=== PATIENT | male | born 1950 | race African-American/Black ===

== ENCOUNTER → 2017-09-01 | Outpatient (CLI) | payer OTHER ==
[~2017-09-01] MED LIST: ACETAMINOPHEN325 M1 PO; AMBIEN CR 6.26.25 MG PO; AMBIENCR PO; ASPIRIN EC81 M1 PO; ATIVAN1 MG PO; B-121000 MC2 PO; BACTRIM DS TAB1 EACH PO; BACTROBAN22 GM TP; CELEXA 20 MG TA20 M1 PO; CELEXA 20 MG TA20 MG PO; CENTRUM SILVER1 EAC1; CENTRUM SILVER1 EAC4 PO; CIPROFLOXACIN500 M1 PO; CLONIDINE HCL0.2 M2 PO; COLACE 100 MG100 MG PO; DILTIAZEM 24HR240 M1 PO; DILTIAZEM 24HR240 MG PO; DIOVAN HCT 1601 EACH PO; DIOVAN HCT 3201 EAC1 PO; FLECAINIDE ACE100 MG PO; GLUCOTROL5 MG PO; HIBICLENS120 ML TP; JENTADUETO 2.51 EACH PO; K-DUR 20 MEQ T20 MEQ PO; LORAZEPAM 1 MG T1 M1 PO; MEDROL DOSPAK21 TAB PO; MINIPRIN81 MG PO; MOBIC15 MG PO; MOM PO; NEURONTIN 300300 M1 PO; NEURONTIN 300M300 M2 PO; NEXIUM 40 MG CA40 M1 PO; NORCO 5-325 TA1 EACH PO; PERCOCET 5-3251 EACH PO; PERCOCET PO; PROAIR HFA8.5 GM INH; SIMVASTATIN40 MG PO; SKELAXIN 800 M800 M1 PO; SONATA10 MG PO; SUPHEDRIN30 MG PO; TYLENOL325 MG PO; VALSARTAN-HCTZ1 EAC3 PO; VITAMIN B-1100 M1 PO; XANAX 0.5 MG0.5 MG PO; ZANTAC 150MG T150 M1 PO; ZOCOR40 MG PO
--- NOTE | ~2017-09-01 | 2DMMODE ---
[facility] [address] [place] [address] 2 D/M-MODE ECHOCARDIOGRAM Name: ALBINO MOSLEY SIERRA Room #: REG [facility]#: [id number] Admission: 09/01/17 Attend Phys: Marcus Orantes MD Discharge: Date of : 52 Date of Service: 09/01/17 1507 Report #: [id number] THIS REPORT FOR: //name// APPROVED REPORT Study performed: 09/01/2017 13:55:29 EXAM: Comprehensive 2D, Doppler, and color-flow Echocardiogram Patient Location: Out-Patient Room #: Echo lab Status: routine BSA: 2.04 HR: 67 bpm BP: 144/96 mmHg Other Information Study Quality: Good Indications Atrial Fibrillation 2D Dimensions RVDd: 33.54 mm LVEF(%): 60.72 (>50%) IVSd: 11.44 (7-11mm) LVOT Diam: 20.93 (18-24mm) LVDd: 47.66 mm PWd: 9.92 (7-11mm) Ascending Ao: 34.78 (22-36mm) LVDs: 32.19 (25-40mm) Aortic Root: 38.04 mm IVC: 13.00 mm Vyas's LVEF: 60.72 % Volumes Left Atrial Volume (Systole) Single Plane 4CH: 46.98 mL Single Plane 2CH: 57.38 mL LA ESV Index: 28.00 mL/m2 Aortic Valve AoV Peak Mathew.: 1.50 m/s AO Peak Gr.: 9.03 mmHg LVOT Max P.95 mmHg LVOT Max V: 1.11 m/s ZANDER Vmax: 2.54 cm2 Mitral Valve E/A Ratio: 0.7 MV Decel. Time: 281.25 ms MV E Max Mathew.: 0.53 m/s [facility] [place] [address] 2 D/M-MODE ECHOCARDIOGRAM Name: ALBINO MOSLEY META Room #: REG [facility].#: [id number] Admission: 09/01/17 Attend Phys: Marcus Orantes MD Discharge: Date of : 52 Date of Service: 09/01/17 1507 Report #: [id number] MV A Mathew.: 0.72 m/s MV PHT: 81.56 ms IVRT: 161.48 ms Pulmonary Valve PV Peak Mathew.: 0.70 m/s PV Peak Gr.: 1.98 mmHg Pulmonary Vein P Vein S: 0.44 m/s P Vein A: 0.28 m/s P Vein D: 0.31 m/s P Vein A Dur.: 110.7 msec P Vein S/D Ratio: 1.42 Tricuspid Valve TR Peak Mathew.: 2.51 m/s TR Peak Gr.: 25.23 mmHg PA Pressure: 30.00 mmHg Left Ventricle The left ventricle is normal size. There is normal left ventricular wall thickness. The left ventricular systolic function is normal. The left ventricular ejection fraction is within the normal range. LVEF is 55-60%. Grade I - abnormal relaxation pattern. Right Ventricle The right ventricle is normal size. The right ventricular systolic function is normal. Atria The left atrium size is normal. Right atrium is at the upper limits of normal. Aortic Valve The aortic valve is normal in structure. No aortic regurgitation is present. There is no aortic valvular stenosis. Mitral Valve The mitral valve is normal in structure. Trace mitral regurgitation. No evidence of mitral valve stenosis. Tricuspid Valve The tricuspid valve is normal in structure. There is trace to mild tricuspid regurgitation. The right atrial pressure is estimated at mmHg. There is no pulmonary hypertension. Pulmonic Valve The pulmonary valve is normal in structure. Trace pulmonic [facility] [address] [place] [address] 2 D/M-MODE ECHOCARDIOGRAM Name: ALBINO MOSLEY Room #: REG [facility]#: [id number] Admission: 09/01/17 Attend Phys: Marcus Orantes MD Discharge: Date of : 52 Date of Service: 09/01/17 1507 Report #: [id number] regurgitation. Great Vessels The aortic root is normal in size. IVC is normal in size and collapses >50% with inspiration. Pericardium There is no pericardial effusion. <Conclusion> The left ventricle is normal size. There is normal left ventricular wall thickness. The left ventricular systolic function is normal. Grade I - abnormal relaxation pattern. The right ventricle is normal size. The left atrium size is normal. There is no aortic valvular stenosis. Trace mitral regurgitation. There is no pericardial effusion. <ELECTRONICALLY SIGNED> By: Mracus Orantes MD 09/01/17 1507 1507 1507 Marcus Orantes MD /INF
== END ==
LOC: CV 09:21
DX: I48.0 Paroxysmal atrial fibrillation (principal)

== ENCOUNTER → 2018-06-08 | Outpatient (CLI) | payer OTHER | LOC: NUC 09:07 | DX: I48.91 Unspecified atrial fibrillation (principal); R07.9 Chest pain, unspecified; I11.0 Hypertensive heart disease with heart failure; I50.9 Heart failure, unspecified; E11.9 Type 2 diabetes mellitus without complications; E78.5 Hyperlipidemia, unspecified ==

== ENCOUNTER 2018-10-30 17:53 | Inpatient (IN) | payer OTHER ==
[~2018-10-30] VITALS: Ht 180.3 cm; Wt 107.5 kg
[~2018-10-30 17:53] MED LIST changes: +CYMBALTA30 MG PO; +ELIQUIS5 MG PO; +FLOMAX0.4 MG PO; +GLUCOPHAGE XR750 MG PO; +PEPCID20 MG PO
[2018-10-30 18:02] VITALS: BP 92/64
[2018-10-30 19:04] LABS: ABSOLUTE NEUTROPHILS 3.2 thou/uL (1.4-8.2); BASOPHILS 0.6 % (0.0-2.0); EOSINOPHILS 3.8 % (0.0-3.0); HEMATOCRIT 32.4 % (42.0-52.0); HEMOGLOBIN 11.3 gm/dL (14.0-18.0); LYMPHOCYTES 24.3 % (24.0-44.0); MCH 31.3 pg (26.0-34.0); MCHC 34.7 g/dL (28.0-37.0); MCV 90.3 fL (80.0-100.0); MONOCYTES 11.3 % (1.0-8.0); PLATELET COUNT 205 thou/uL (150-400); RBC 3.59 mil/uL (4.50-6.00); RDW 13.8 % (10.5-14.5); WBC 5.3 thou/uL (4.0-11.0)
[2018-10-30 19:11] LABS: CALCIUM 10.2 mg/dL (8.5-10.1); CREATININE 1.5 mg/dL (0.7-1.3)
[2018-10-31 01:44] VITALS: BP 96/68
[2018-10-31 02:18] VITALS: BP 90/64
--- NOTE | 2018-10-31 04:15 | NUR ---
ASSUMED CARE FROM ED PT DATA BASE OBTAINED FROM PT AND DAUGHTER, GAIT VERY UNSTEADY WHEN USING URINAL BED ALARM PLACED FOR SAFETY. BP 90/60 UPON ARRIVAL TO UNIT ASSESSMENT COMPLETED NO ACTIVEN ETOH WITHDRAWAL NOTED BUT DAUGHTER STATES PT DRINKS APPROX 30 BEERS/DAY. STRAIGHTENER AND ALIGNER PLACED ON PT SHOWS NSR, DISCUSS PLAN OF CARE AND PT AND DAUGHTER AGREED. WILL CONITNUE TO PORTIA NAVAS AND REPORT CHANGES OR ABNORMAL FINDINGS
[2018-10-31 07:17] VITALS: BP 107/78
[2018-10-31 09:25] LABS: FOLIC ACID 36.6 ng/mL (8.6-58.9)
[2018-10-31 11:23] VITALS: BP 116/78
[2018-10-31 15:45] VITALS: BP 134/90
--- NOTE | 2018-10-31 18:19 | NUR ---
Assumed care of Pt at 0700. Pt oriented x2-3 in no acute distress. frustrated about being here. not wanting to talk to family members. frustrated with bed alarm. ambulated around hallway w/ PT. up w/ standby assist - never uses call light despite frequent reminders. sinus on telemetry. vitals stable. home meds resumed. psych consult ordered. showing no signs of withdrawal. will cont to monitor.
[2018-10-31 19:55] VITALS: BP 152/95
--- NOTE | 2018-10-31 21:18 | NUR ---
REFUSES TO TAKE MEDICATION OR ALLOW FINGER STICK TO MONITOR BLOOD GLUCOSE. UNCOOPERATIVE WITH CARES TONIGHT. CONITNUES TO REFUSE TO ALLOW IV FLUIDS TO BE HOOKED UP TO THE IV. ANSWERS QUESTION APPROPRIATE TONIGHT. PERSON , PLACE AND TIME
--- NOTE | 2018-10-31 23:34 | NUR ---
refusing to allow assessment for the mid shift. comntinies to allow heart monitor to be staying on him.
[2018-11-01 04:23] LABS: HEMATOCRIT 31.6 % (42.0-52.0); HEMOGLOBIN 10.8 gm/dL (14.0-18.0); MCH 30.8 pg (26.0-34.0); MCHC 34.1 g/dL (28.0-37.0); MCV 90.4 fL (80.0-100.0); RBC 3.5 mil/uL (4.50-6.00); RDW 13.5 % (10.5-14.5); WBC 4.1 thou/uL (4.0-11.0)
[2018-11-01 04:41] LABS: ALBUMIN 3.7 g/dL (3.4-5.0); CALCIUM 9.7 mg/dL (8.5-10.1); POTASSIUM 3.5 mmol/L (3.5-5.1); TOTAL BILIRUBIN 0.6 mg/dL (<0.1-1.0); TOTAL PROTEIN 7.3 g/dL (6.4-8.2)
[2018-11-01 05:00] VITALS: BP 111/73
--- NOTE | 2018-11-01 05:25 | NUR ---
pt is more polite and relaxed this morning after sleeping for 4 - 6 hrs. he is staying in his room and forgets to call for assist out of bed, but has a strong steady gait out of bed to restroom. careplan reviewed, dwainues to refuse the iv fluids this morning. his dtr jakob called to check that we are able to manange him. her plan for him is for him to stay and detox from alcohol with this admission.
[2018-11-01] MEDS ORDERED: XANAX 0.5 MG0.5 MG PO (06:30)
[2018-11-01 07:33] VITALS: BP 149/93
[2018-11-01 10:59] LABS: ABSOLUTE NEUTROPHILS 2.5 thou/uL (1.4-8.2); BASOPHILS 0.4 % (0.0-2.0); EOSINOPHILS 2.2 % (0.0-3.0); HEMATOCRIT 32.8 % (42.0-52.0); HEMOGLOBIN 11.3 gm/dL (14.0-18.0); LYMPHOCYTES 25.4 % (24.0-44.0); MCH 30.7 pg (26.0-34.0); MCHC 34.4 g/dL (28.0-37.0); MCV 89.3 fL (80.0-100.0); PLATELET COUNT 192 thou/uL (150-400); RBC 3.68 mil/uL (4.50-6.00); RDW 13.8 % (10.5-14.5); WBC 4.3 thou/uL (4.0-11.0)
[2018-11-01 11:15] VITALS: BP 134/87
[2018-11-01 11:17] LABS: MAGNESIUM 1.6 mg/dL (1.8-2.4); PHOSPHORUS 4.2 mg/dL (2.5-4.9)
--- NOTE | 2018-11-01 11:22 | NUR ---
care of pt assumed this am @ ~0700. pt noted to be resting quietly and comfortably in bed w/ his daughter at . pt denied pain, soa and no n/v/d this am. pt receiving ivf's to rt ac w/o ss of infiltration. pt reminded of fall precautions, w/ bed alarm on, yellow band on and yellow socks on and need to call staff if he desires to get up or out of bed. pt verbalized to his daughter his desire to take his po am medications at 0800 as that is what he does at home. pt informed of meal times, but stated he really doesn't eat breakfast and lunch, but does eat dinner.
[2018-11-01 15:47] LABS: AMP/METHAMP Negative (Negative); BARBITURATES Negative (Negative); BENZODIAZEPINES POSITIVE (Negative); COCAINE Negative (Negative); METHADONE Negative (Negative); OPIATES Negative (Negative); PCP Negative (Negative)
[2018-11-01 15:56] LABS: URINE BILIRUBIN NEGATIVE (Negative); URINE BLOOD NEGATIVE (Negative); URINE CLARITY CLEAR; URINE COLOR YELLOW; URINE GLUCOSE-RANDOM* NEGATIVE (Negative); URINE KETONES NEGATIVE (Negative); URINE LEUKOCYTES NEGATIVE (Negative); URINE NITRITE NEGATIVE (Negative); URINE PROTEIN (DIPSTICK) NEGATIVE (Negative); URINE SPECIFIC GRAVITY <= 1.005 (1.005-1.035); URINE UROBILINOGEN 0.2 E.U./dl (0.2-1.0)
[2018-11-01 16:28] VITALS: BP 133/84
[2018-11-01 19:20] VITALS: BP 147/81
--- NOTE | 2018-11-02 02:04 | NUR ---
PATIENT IS ALERT AND ORIENTED. PATIENTS CIWA WAS ONE. PATIENT DENEIS PAIN, NAUSEA OR UNDERWOOD. NO TREMORS NOTED. PAITNET IS SBA WITH GAITBELT. STEADY GAIT. PATIENTS LBM WAS THE 5TH. PATIENT IS RESTING COMFORTABLY IN BED. WCM. PATIENT IS PROGRESSING TO GOALS.
[2018-11-02 04:30] VITALS: BP 131/81
[2018-11-02 07:31] VITALS: BP 156/84
[2018-11-02 10:51] VITALS: BP 129/92
[2018-11-02 15:38] VITALS: BP 155/93
--- NOTE | 2018-11-02 16:36 | NUR ---
INITIAL ASSESSMENT: Received consult for discharge planning. SW reviewed chart and spoke with nursing and attending physician. Pt was admitted from home due to being found down by family. Pt with hx of ETOH abuse and depression. Pt was recently on H unit from 10/29-10/31. Psych is following pt and recommendation made for pt to do inpt or outpatient treatment. SW met with pt and son at bedside. Introduced role of SW. Pt is alert/orientated. Pt reports he lives at home with his . Pt is independent with ADLs. Pt lives at [address] No steps to enter apt and no steps inside. Pt's PCP is Dr. Bruna Naik. Pt states he is adamant about going home. Pt agreeable with outpatient treatment for ETOH/depression. SW also spoke with pt's dtr, Parish, who is an RT at [facility]. Pt's dtr states that family will assist and encourage pt with going to outpt treatment. SW to provide pt/family with resources. No discharge planned for today. SW updated pt and son at bedside. SW is following to assist as needed with discharge planning.
--- NOTE | 2018-11-02 18:14 | NUR ---
ASSUMED PATIENT CARE AT 0715. A&OX4. PATIENT HAS A HISTORY OF ETOH ABUSE. CIWA'S HAVE BEEN AT 1 THROUGHOUT THE DAY. PATIENT SHOWERED WITH ASSISTANCE TODAY. PATIENTS GAIT IS UNSTEADY. PATIENT IS ANXIOUS TO BE DISCHARGED. PSYCH SUGGESTING PATIENT STAYS INPATIENT FOR 3-5 NIGHTS. FAMILY AT BEDSIDE MOST OF THE DAY. PATIENT LIKES MORNING MEDS BEFORE 0800 AND EVENING MEDS BY 1800. MED TIMES CHANGED. PATIENT WANTING TO SPEAK WITH HOSPITALIST AGAING TODAY BUT DOCTOR UNAVAILABLE.
[2018-11-02 20:00] VITALS: BP 160/91
[2018-11-03 04:20] VITALS: BP 166/91
[2018-11-03 06:01] LABS: CREATININE 0.8 mg/dL (0.7-1.3); MAGNESIUM 1.4 mg/dL (1.8-2.4); POTASSIUM 3.7 mmol/L (3.5-5.1)
[2018-11-03 06:30] VITALS: BP 151/81
--- NOTE | 2018-11-03 07:48 | NUR ---
PATIENT IS ALERT AND ORIENTED. CIWA HAS BEEN A ONE. PATIENT ROOM AIR. PATIENT IS UP TIMES ONE WITH A GAITBELT. PATIENT IS NSR ON TELE. PATIENT AMBULATED 7-10 AROUND SHIFT. PATIENTS LBM WAS THE 6TH. PATIENT WANTS TO GO HOME. MAY BE PENDING DISCHARGE TODAY. PATIENT DENIES PAIN. PATIENT IS PROGRESSING TO GOALS. WCM.
[2018-11-03 08:17] VITALS: BP 178/101
[2018-11-03 09:03] VITALS: BP 178/101
[2018-11-03 09:04] VITALS: BP 178/101
--- NOTE | 2018-11-03 10:04 | NUR ---
ASSUMED PATIENT CARE AT 0715. PATIENT VERY AGITATED THIS MORNING, STATING THAT EVERYONE WAS A LIAR AND THAT THEY WANTED TO SPEAK TO THE DOCTOR IMMEDIATELY. DR. TAYLOR NOTIFIED. DR. TAYLOR CAME UP TO THE FLOOR AND SPOKE WITH THE PATIENT WITHIN 10 MINUTES OF BEING NOTIFIED. PATIENT STILL WANTING TO DISCHARGE. PSYCH STATED THERE WAS NOT REASON FOR PATIENT TO BE HELD. PATIENT UNWILLING TO CONSENT TO ANY INPATIENT ETOH TREATMENT. OUTPATIENT ETOH TREATMENT GIVEN TO PATIENTS FAMILY AT DISCHARGE. PATIENT DISCHARGED WITH CHILDREN TO HOME.
--- NOTE | 2018-11-03 13:55 | NUR ---
DISCHARGE NOTE: SW notified by nursing that pt has discharge orders and ready to go home. Pt's family present at bedside. SW provided pt with resources for outpatient [facility] and info for [facility]. Also provided pt with contact info for Psychiatry group at [facility] for follow up care. No additional SW needs identified at this time, but is available to assist should needs arise.
--- NOTE | 2018-11-04 17:53 | HC ---
[facility] [place] [address] CONSULTATION Name: ALBINO MOSLEY SIERRA Room #: 353-P [facility] IN M.R.#: [id number] Admission: 10/31/18 ������������������ Attend Phys: Hu Rhoades MD Discharge: 11/03/18 ������������������ Date of : 52 Report #: [id number] THIS REPORT FOR: //name// CC: Bruna Flores Millie Abreu DATE OF SERVICE: 11/01/2018 HISTORY OF PRESENT ILLNESS: This patient was admitted after a fall that occurred on the way home from the hospital. The patient had actually been admitted to inpatient psychiatry earlier in this week with concerns about suicidal ideation, depression and alcohol use disorder. However, on the unit, he essentially denied any suicidal thinking and was adamant that he wanted to be discharged. It appeared there was insufficient criteria to keep him in the hospital and there was question that the involuntary paperwork had been filled out incorrectly. The patient's daughter is at the bedside. The patient's daughter still has concerns about the patient's level of depression and alcohol use. The patient is adamant that he does not want to , but also acknowledges that if he wants to continue to use alcohol, he will do so. The patient does show basic understanding of the atrial fibrillation and some of the risks, though somewhat doubts or minimizes the association with atrial fibrillation and alcohol use disorder. The patient also had concerns about some recent medication changes. PAST PSYCHIATRIC HISTORY: The patient does not see a psychiatrist or therapist at this time. He has been getting antidepressants from Dr. Naik. PAST MEDICAL HISTORY: Atrial fibrillation, recent fall, diabetes. CURRENT MEDICATIONS: Alprazolam 0.5 three times daily, Cymbalta 30 mg daily, Tramadol p.r.n., diltiazem 240 daily, famotidine 20 twice daily, gabapentin 800 twice daily, metformin 750 daily. SOCIAL HISTORY: He is for over 40 years; however, he tells me that he is contemplating divorce and actually has been doing so for over 40 years. However, "she is a beautiful woman and a wonderful woman." His daughter explains that the patient's has been ill for the last 5 years and there has been significant more responsibility put upon the patient, her father. The patient has always used alcohol and may have been "functional alcoholic." However, he was always able to quit using alcohol completely sometimes for years at a time. Lately, however, he has had difficulty stopping his alcohol use has increased. 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 MENTAL STATUS EXAM: -Libyan male, casually dressed. Depressed mood. Congruent affect. Normal rate and normal speech. He is articulate. [facility] [address] [place] [address] CONSULTATION Name: ALBINO MOSLEY JERSEY Room #: 353-P [facility] IN M.R.#: [id number] Admission: 10/31/18 ������������������ Attend Phys: Hu Rhoades MD Discharge: 11/03/18 ������������������ Date of : 52 Report #: [id number] suicidal ideation, no homicidal ideation, no hallucinations, no delusions. Insight and judgment fair overall, but limited in some areas. DIAGNOSES: 1. Major depressive disorder, recurrent, severe. 2. Alcohol use disorder. RECOMMENDATIONS: I educated the patient that I believe he should stay at least overnight in the hospital, but ideally 3-5 days for monitoring of alcohol withdrawal and stabilization of atrial fibrillation. Ideally, we can also perhaps influence him with respect to sobriety and optimize antidepressant treatment. I did educate him that the alcohol is a "depressant" and they can even counteract the benefits of his antidepressant. I spent extra time educating the patient's daughter with respect to safety, depression, alcohol and involuntary commitment. The patient's daughter does have concerns about the patient's safety and she believes he has possibly expressed suicidal ideation in the past and that she has concerns about his safety even outside of periods of direct intoxication. I told her that if she does fill out an affidavit, that we will uphold it and keep the patient in the hospital. That being said, I feel I have insufficient evidence to fill out an affidavit myself and at this time has enough understanding of his medical condition that he may well have capacity to sign out AMA if he ends up pushing for this. ��������������������������������������������� <ELECTRONICALLY SIGNED> ���������������������������������������� By: Deisy Estrada MD ��������������������������������������������� 11/04/18 1753 0925 0016 Johann Kaur MD /nt
== END 2018-11-03 10:00 | disposition home or self-care (01) | DRG 682 ==
LOC: ER 17:53 → EROBS 10-31 00:10 → 3W 10-31 00:10
PROVIDERS: Psychiatry & Neurology Addiction Medicine; Student in an Organized Health Care Education/Training Program; ADMIT Family Medicine
PROC: HZ2ZZZZ Detoxification Services for Substance Abuse Treatment (ICD-10-PCS; principal; 2018-11-02)
DX: N17.9 Acute kidney failure, unspecified (principal); G93.41 Metabolic encephalopathy; E87.1 Hypo-osmolality and hyponatremia; F33.2 Major depressive disorder, recurrent severe without psychotic features; F10.129 Alcohol abuse with intoxication, unspecified; M25.562 Pain in left knee; W18.30XA Fall on same level, unspecified, initial encounter; I10 Essential (primary) hypertension; E11.9 Type 2 diabetes mellitus without complications; R29.6 Repeated falls; Y90.9 Presence of alcohol in blood, level not specified; G30.9 Alzheimer's disease, unspecified; F02.80 Dementia in other diseases classified elsewhere, unspecified severity, without behavioral disturbance, psychotic disturbance, mood disturbance, and anxiety; I48.2 Chronic atrial fibrillation; F10.10 Alcohol abuse, uncomplicated; Z90.49 Acquired absence of other specified parts of digestive tract; Z85.46 Personal history of malignant neoplasm of prostate; Z79.899 Other long term (current) drug therapy; Y93.89 Activity, other specified; Y92.89 Other specified places as the place of occurrence of the external cause; Y99.8 Other external cause status; Z79.01 Long term (current) use of anticoagulants
CPT/HCPCS: 10879

== ENCOUNTER → 2019-04-08 | Outpatient (CLI) | payer OTHER ==
--- NOTE | 2019-04-08 11:42 | 2DMMODE ---
[facility] [place] [address] 2 D/M-MODE ECHOCARDIOGRAM Name: ALBINO MOSLEY SIERRA Room #: REG [facility]#: [id number] Admission: 04/08/19 Attend Phys: Marcus Orantes MD Discharge: Date of : 52 Report #: [id number] THIS REPORT FOR: //name// APPROVED REPORT Study performed: 04/08/2019 10:49:43 EXAM: Comprehensive 2D, Doppler, and color-flow Echocardiogram Patient Location: Out-Patient Room #: Echo lab 2 Status: routine BSA: 2.27 HR: 89 bpm BP: 144/96 mmHg Rhythm: NSR Other Information Study Quality: Good Indications Atrial Fibrillation Hypertension/HDD 2D Dimensions RVDd: 42.37 mm IVSd: 12.71 (7-11mm) LVOT Diam: 19.04 (18-24mm) LVDd: 49.39 mm PWd: 13.90 (7-11mm) Ascending Ao: 33.39 (22-36mm) LVDs: 29.76 (25-40mm) Aortic Root: 35.34 mm IVC: 15.00 mm Volumes Left Atrial Volume (Systole) Single Plane 4CH: 42.58 mL Single Plane 2CH: 45.84 mL LA ESV Index: 23.00 mL/m2 Aortic Valve AoV Peak Mathew.: 1.86 m/s AO Peak Gr.: 13.83 mmHg LVOT Max P.39 mmHg LVOT Max V: 1.16 m/s ZANDER Vmax: 1.78 cm2 Mitral Valve E/A Ratio: 0.9 MV Decel. Time: 252.06 ms [facility] [place] [address] [place] [address] 2 D/M-MODE ECHOCARDIOGRAM Name: ALBINO MOSLEY SIERRA Room #: REG [facility]#: [id number] Admission: 04/08/19 Attend Phys: Marcus Orantes MD Discharge: Date of : 52 Report #: [id number] E Max Mathew.: 0.64 m/s MV A Mathew.: 0.68 m/s MV PHT: 73.10 ms IVRT: 119.95 ms Pulmonary Valve PV Peak Mathew.: 1.10 m/s PV Peak Gr.: 4.87 mmHg Pulmonary Vein P Vein S: 0.68 m/s P Vein A: 0.27 m/s P Vein D: 0.37 m/s P Vein A Dur.: 115.3 msec P Vein S/D Ratio: 1.84 Tricuspid Valve TR Peak Mathew.: 2.84 m/s TR Peak Gr.: 32.16 mmHg PA Pressure: 37.00 mmHg Left Ventricle The left ventricle is normal size. There is normal LV segmental wall motion. Mild concentric left ventricular hypertrophy. Left ventricular systolic function is normal. The left ventricular ejection fraction is within the normal range. LVEF is >55%. Grade I - abnormal relaxation pattern. Right Ventricle The right ventricle is normal size. The right ventricular systolic function is normal. Atria The left atrium size is normal. Right atrium is at the upper limits of normal. Aortic Valve The aortic valve is normal in structure. No aortic regurgitation is present. There is no aortic valvular stenosis. Mitral Valve The mitral valve is normal in structure. There is no mitral valve regurgitation noted. No evidence of mitral valve stenosis. Tricuspid Valve The tricuspid valve is normal in structure. There is trace to mild tricuspid regurgitation. Estimated PAP 37 mmHg. There is mild pulmonary hypertension. [facility] [address] [place] [address] 2 D/M-MODE ECHOCARDIOGRAM Name: ALBINO MOSLEY SIERRA Room #: REG [facility].#: [id number] Admission: 04/08/19 Attend Phys: Marcus Orantes MD Discharge: Date of : 52 Report #: [id number] Pulmonic Valve The pulmonary valve is normal in structure. There is no pulmonic valvular regurgitation. Great Vessels The aortic root is normal in size. IVC is normal in size and collapses >50% with inspiration. Pericardium There is no pericardial effusion. <Conclusion> The left ventricle is normal size. Mild concentric left ventricular hypertrophy. Left ventricular systolic function is normal. LVEF is >55%. Grade I - abnormal relaxation pattern. The right ventricle is normal size. The left atrium size is normal. The aortic valve is normal in structure. There is no mitral valve regurgitation noted. There is trace to mild tricuspid regurgitation. Estimated PAP 37 mmHg. <ELECTRONICALLY SIGNED> By: Marcus Orantes MD 04/08/19 1142 114 114 Marcus Orantes MD /INF
== END ==
LOC: CV 10:37
DX: I36.1 Nonrheumatic tricuspid (valve) insufficiency (principal); I11.9 Hypertensive heart disease without heart failure; I27.20 Pulmonary hypertension, unspecified; Z88.8 Allergy status to other drugs, medicaments and biological substances; Z88.2 Allergy status to sulfonamides

== ENCOUNTER 2019-09-02 14:09 | Inpatient (IN) | payer OTHER ==
[~2019-09-02] VITALS: Ht 177.8 cm; Wt 114.3 kg
[~2019-09-02 14:09] MED LIST changes: -GLUCOPHAGE XR750 MG PO; +GLUCOPHAGE850 MG PO
[2019-09-02 14:10] VITALS: BP 154/99
[2019-09-02 14:39] LABS: ABSOLUTE NEUTROPHILS 2.8 thou/uL (1.4-8.2); BASOPHILS 0.7 % (0.0-2.0); EOSINOPHILS 3.6 % (0.0-3.0); HEMATOCRIT 35.9 % (42.0-52.0); HEMOGLOBIN 11.8 gm/dL (14.0-18.0); LYMPHOCYTES 42.1 % (24.0-44.0); MCH 28.6 pg (26.0-34.0); MCHC 32.9 g/dL (28.0-37.0); MCV 86.9 fL (80.0-100.0); MONOCYTES 7.6 % (1.0-8.0); PLATELET COUNT 223 thou/uL (150-400); RBC 4.13 mil/uL (4.50-6.00); RDW 14.6 % (10.5-14.5); WBC 6.2 thou/uL (4.0-11.0)
[2019-09-02 14:50] LABS: CALCIUM 9.4 mg/dL (8.5-10.1)
[2019-09-02 14:54] LABS: APTT 28.5 Seconds (24.5-32.8); PROTIME 10.5 Seconds (9.3-11.4)
[2019-09-02 14:56] LABS: ALBUMIN 3.7 g/dL (3.4-5.0); TOTAL BILIRUBIN 0.4 mg/dL (<0.1-1.0); TOTAL PROTEIN 7.3 g/dL (6.4-8.2)
[2019-09-02 15:11] LABS: URINE BILIRUBIN NEGATIVE (Negative); URINE BLOOD NEGATIVE (Negative); URINE CLARITY CLEAR; URINE COLOR YELLOW; URINE GLUCOSE-RANDOM* TRACE (Negative); URINE KETONES NEGATIVE (Negative); URINE LEUKOCYTES-REFLEX NEGATIVE (Negative); URINE NITRITE-REFLEX NEGATIVE (Negative); URINE PROTEIN (DIPSTICK) NEGATIVE (Negative); URINE UROBILINOGEN 0.2 E.U./dl (0.2-1.0)
[2019-09-02 15:19] LABS: AMP/METHAMP Negative (Negative); BARBITURATES Negative (Negative); BENZODIAZEPINES POSITIVE (Negative); COCAINE Negative (Negative); METHADONE Negative (Negative); OPIATES POSITIVE (Negative); PCP Negative (Negative)
--- NOTE | 2019-09-02 15:35 | NUR ---
PT RETURNED FROM CT/XRAY
[2019-09-02] MEDS ORDERED: XANAX1 MG PO (15:44)
[2019-09-02] MEDS ORDERED: ELIQUIS5 MG PO (15:45)
[2019-09-02 18:25] VITALS: BP 155/93
--- NOTE | 2019-09-02 18:32 | NUR ---
FIRST ATTEMPT TO CALL REPORT AT 182
--- NOTE | 2019-09-02 18:33 | NUR ---
SECOND ATTEMPT TO CALL REPORT AT 1830
--- NOTE | 2019-09-02 18:59 | NUR ---
THIRD ATTEMPT TO CALL REPORT AT 0381
--- NOTE | 2019-09-02 19:08 | NUR ---
REPORT GIVEN TO SEAN GARCIA AT 190
[2019-09-02 20:02] LABS: ALBUMIN 3.8 g/dL (3.4-5.0)
[2019-09-02 20:27] LABS: TSH 3.536 uIU/mL (0.358-3.740)
--- NOTE | 2019-09-03 03:17 | NUR ---
New pt from the ed admitted with increase weakness. pt fell at home and hit head off 2flights of stairs. pt reported to be on eloquis. assessments completed. pt a&ox4. ambulates with standby assist. pt refused bed alarm be turned on and is noncomplaint with fall risk prec. pt refused scd's. pt will be going in for an mri in the am. mri paperwork filled out. pt is a diabetic. daughter stated to have pt on a regular diet instead of carb control. daughter stopped by @ around 0300 to check on pt. v/s stable. no s/s of distress. will cont to monitor
[2019-09-03 05:15] LABS: HEMATOCRIT 33.6 % (42.0-52.0); MCH 28.7 pg (26.0-34.0); MCHC 32.9 g/dL (28.0-37.0); MCV 87.2 fL (80.0-100.0); RBC 3.85 mil/uL (4.50-6.00); RDW 14.4 % (10.5-14.5)
[2019-09-03 05:16] LABS: CALCIUM 8.4 mg/dL (8.5-10.1); CREATININE 0.8 mg/dL (0.7-1.3); MAGNESIUM 1.6 mg/dL (1.8-2.4); POTASSIUM 4.1 mmol/L (3.5-5.1)
[2019-09-03 07:55] VITALS: BP 141/89
--- NOTE | 2019-09-03 08:03 | EKG ---
[facility] [place] [address] ELECTROCARDIOGRAM REPORT Name: ALBINO MOSLEY Room #: 463-P ADM IN M.R.#: [id number] Admission: 09/02/19 Attend Phys: Tono Johnson MD Discharge: Date of : 52 Report #: [id number] THIS REPORT FOR: cc: Bruna Naik MD, Karla L. 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1950 Requested By: Ellen Liang Order Number: [id number] MD: Aydin Gould Measurements Intervals [place] Rate: 86 P: 77 W[place]: 157 QRS: -7 QRSD: 94 T: 61 QT: 397 QTc: 475 Interpretive Statements Sinus rhythm No significant abnormality Compared to ECG 07/19/2013 13:26:48 T-wave abnormality no longer present Electronically Signed On 09-03-2019 8:02:02 CARPENTER SUPERVISOR by Ayidn Gould [email or web address] <ELECTRONICALLY SIGNED> By: Aydin Gould MD, [facility] 09/03/19 0802 1623 1623 Aydin Gould MD, [facility] /EPI
[2019-09-03 12:20] VITALS: BP 124/75
--- NOTE | 2019-09-03 15:33 | NUR ---
PT ADMITTED RELATED TO NANCY HEAD INJURY, ABNORMAL GAIT. CM REVIEWED CHART AND SPOKE WITH CARE TEAM. CM MET WITH PT AT BEDSIDE THIS DAY. PT IS A&O X4. CM ROLE INTRODUCED. PT INDICATED HE LIVES IN HOUSE WITH IS SPOUSE WITH NO STEPS TO ENTER AND NO STEPS INSIDE. 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 PT DID ADMIT TO FALLS RENAL MEDICINE PHYSICIAN. CHART INDICATES THAT PT HAD BEEN TO [address] [place] [address] 10/29-10/31. CHART INIDCATED THAT PT HAD BEEN PROVIDED INFO RELATED TO OP SUBSTANCE ABUSE IN THE PAST WELL. PT INIDCATED HE HOPES TO BE ABLE TO RETURN HOME ONCE MEDICALLY STABLE. CM SPOKE WITH PT AT ABOUT POSSIBLE ADMISSION TO ACUTE REHAB UPON DC IF APPROPRIATE. PT INIDCATED HE WOULD BE RECEPTIVE. CM TO FOLLOW INDICATED WITH DC PLANNING.
--- NOTE | 2019-09-03 20:12 | NUR ---
Assumed pt care this am, VS stable. Diet and medication are well tolerated. Refused insulin since he does not take this at home. POC followed No signs or verbalizatiosn of distres noted. Went down for sereval diagnostics. endoresed to the night nurse.
[2019-09-04 01:07] LABS: GLYCOHEMOGLOBIN (HGB A1C) 7.8 % (4.8-5.6)
--- NOTE | 2019-09-04 06:00 | NUR ---
pt was a little agitated at the start of the shift, wanting to leave to go home. pt stated "manager of case said she was coming back to talk with me so i can leave". pt was redirected by nurse with the help of patient's . pt took all his meds with no problems and was able to sleep the night with very little interruptions. v/s stable. no s/s of distress. will cont to monitor
[2019-09-04 07:43] VITALS: BP 123/73
[2019-09-04] MEDS ORDERED: NEURONTIN 300300 M1 PO (12:15)
[2019-09-04] MEDS ORDERED: CYMBALTA30 MG PO (12:24)
[2019-09-04] MEDS ORDERED: MICONAZOLE NITR45 G3 TOP (12:26)
[2019-09-04] MEDS ORDERED: ASPIR 8181 M1 PO (12:32)
[2019-09-04] MEDS ORDERED: VITAMIN B-121000 MC2 PO (12:44)
[2019-09-04 12:55] VITALS: BP 123/73
--- NOTE | 2019-09-04 13:34 | NUR ---
Assumed pt care this am. VS stable , refused all insulin. Pt was upset since he was told yesterday that he had an option to go home yesterday or today they opted to go yesterday. NO DC orders were given til today, seen by . DC instructions given to the pt. and daughter at the bedside, IV removed. Pt leaving with . POC followed no sings or verbalizations of ldistress have been noted.
== END 2019-09-04 13:53 | disposition home or self-care (01) | DRG 552 ==
LOC: ER 14:09 → 4W 17:33 → EROBS 17:33 → 4W 19:17
PROVIDERS: Physician Assistant; ADMIT Internal Medicine
DX: M48.061 Spinal stenosis, lumbar region without neurogenic claudication (principal); F33.2 Major depressive disorder, recurrent severe without psychotic features; I10 Essential (primary) hypertension; G30.9 Alzheimer's disease, unspecified; F02.80 Dementia in other diseases classified elsewhere, unspecified severity, without behavioral disturbance, psychotic disturbance, mood disturbance, and anxiety; I48.91 Unspecified atrial fibrillation; C61 Malignant neoplasm of prostate; F10.10 Alcohol abuse, uncomplicated; W18.39XA Other fall on same level, initial encounter; N40.0 Benign prostatic hyperplasia without lower urinary tract symptoms; M17.0 Bilateral primary osteoarthritis of knee; E11.42 Type 2 diabetes mellitus with diabetic polyneuropathy; Z72.89 Other problems related to lifestyle; Z79.01 Long term (current) use of anticoagulants; Z79.899 Other long term (current) drug therapy; Z79.2 Long term (current) use of antibiotics; Z91.81 History of falling; Z79.84 Long term (current) use of oral hypoglycemic drugs; Z90.49 Acquired absence of other specified parts of digestive tract
CPT/HCPCS: 10040

== ENCOUNTER 2019-09-14 08:16 | Emergency (ER) | payer OTHER ==
[~2019-09-14] VITALS: Ht 177.8 cm; Wt 111.1 kg
[~2019-09-14 08:16] MED LIST changes: +ASPIR 8181 M1 PO; +MICONAZOLE NITR45 G3 TOP; +VITAMIN B-121000 MC2 PO; +XANAX1 MG PO
[2019-09-14 08:32] VITALS: BP 0/0
== END 2019-09-14 08:32 ==
LOC: ER 08:16
DX: I46.9 Cardiac arrest, cause unspecified (principal); I10 Essential (primary) hypertension; I48.91 Unspecified atrial fibrillation; E11.9 Type 2 diabetes mellitus without complications; Z79.899 Other long term (current) drug therapy